=== PATIENT | female | born 1980 | race American Indian/Alaskan Native ===

== ENCOUNTER 2017-12-18 10:11 | Emergency (ER) | payer SELFPAY ==
--- NOTE | 2017-12-18 10:44 | Emergency Department Report ---
ED Abdominal Pain HPI - General Chief Complaint: Abdominal Pain Stated Complaint: ABD PAIN Time Seen by Provider: 12/18/17 10:37 Source: patient Mode of arrival: Ambulatory Limitations: No Limitations - History of Present Illness Initial Comments: 37-year-old female presents for 1 week of pelvic pain. Constant vaginal discharge. Denies fever. Denies vomiting. Denies poor appetite. Mild pain. -: Gradual, week(s) (1) Location: suprapubic Radiation: none Migration to: no migration Severity: mild Quality: cramping Consistency: intermittent Improves With: nothing Worsens With: nothing - Related Data Previous Rx's Medication Instructions Recorded Last Taken Type Acetaminophen/Codeine [Tylenol #3] 1 tab PO Q8H PRN #12 tablet 04/17/15 Unknown Rx Promethazine [Phenergan TAB] 25 mg PO Q8HR PRN #15 tab 04/17/15 Unknown Rx Ibuprofen 800 mg PO Q6H PRN #10 tablet 12/18/17 Unknown Rx Allergies Allergy/AdvReac Type Severity Reaction Status Date / Time No Known Allergies Allergy Verified 12/18/17 10:15 ED Review of Systems ROS: Stated complaint: ABD PAIN Other details as noted in HPI Comment: All other systems reviewed and negative Constitutional: denies: fever, malaise Respiratory: denies: cough Cardiovascular: denies: chest pain ED Past Medical Hx - Past Medical History Hx Hypertension: Yes Hx Headaches / Migraines: Yes Hx Asthma: Yes - Surgical History Additional Surgical History: . TUBAL LIGATION - Social History Smoking Status: Never Smoker Substance Use Type: None - Medications Home Medications: Home Medications Medication Instructions Recorded Confirmed Last Taken Type Acetaminophen/Codeine [Tylenol #3] 1 tab PO Q8H PRN #12 tablet 04/17/15 Unknown Rx Promethazine [Phenergan TAB] 25 mg PO Q8HR PRN #15 tab 04/17/15 Unknown Rx Ibuprofen 800 mg PO Q6H PRN #10 tablet 12/18/17 Unknown Rx ED Physical Exam - General Limitations: No Limitations General appearance: alert, in no apparent distress - Head Head exam: Present: atraumatic, normocephalic - Eye Eye exam: Present: normal appearance - ENT ENT exam: Present: mucous membranes moist - Neck Neck exam: Present: normal inspection - Respiratory Respiratory exam: Present: normal lung sounds bilaterally. Absent: respiratory distress, wheezes, rales, rhonchi - Cardiovascular Cardiovascular Exam: Present: regular rate, normal rhythm, normal heart sounds. Absent: systolic murmur, diastolic murmur, rubs, gallop - GI/Abdominal GI/Abdominal exam: Present: soft, normal bowel sounds. Absent: distended, tenderness, guarding, rebound - Extremities Exam Extremities exam: Present: normal inspection - Back Exam Back exam: Present: normal inspection - Neurological Exam Neurological exam: Present: alert, oriented X3 - Psychiatric Psychiatric exam: Present: normal affect, normal mood - Skin Skin exam: Present: warm, dry, intact, normal color. Absent: rash ED Course Vital Signs 12/18/17 10:15 Temperature 98.4 F Pulse Rate 89 Respiratory 18 Rate Blood Pressure 135/94 O2 Sat by Pulse 100 Oximetry ED Medical Decision Making - Medical Decision Making 1 week of pelvic pain: Differential includes PID, cystitis, ovarian cyst, endometriosis. No indication of ectopic . No indication of appendicitis. Patient was referred to the health department and outside clinic for further evaluation and treatment. Critical care attestation.: If time is entered above; I have spent that time in minutes in the direct care of this critically ill patient, excluding procedure time. ED Disposition Clinical Impression: Pelvic pain Disposition: DC-01 TO HOME OR SELFCARE Is pt being admited?: No Does the pt Need Aspirin: No Condition: Stable Instructions: Abdominal Pain (ED), Chronic Pelvic Pain in Women (ED) Prescriptions: Ibuprofen 800 mg PO Q6H PRN #10 tablet PRN Reason: Pain Referrals: PRIMARY CARE, [Primary Care Provider] - 3-5 Days Forms: Work/School Release Form(ED)
[2017-12-18 10:53] LABS: HCG Qualitative,Urine Negative (Negative)
[2017-12-18 10:54] LABS: Mucus,Urine FEW /HPF
[2017-12-18 10:56] LABS: Bilirubin,Urine NEG (Negative); Blood,Urine MOD (Negative); Color,Urine Yellow (Yellow); Protein,Urine <15 mg/dL mg/dL (Negative); Urobilinogen,Urine < 2.0 mg/dL (<2.0)
[2017-12-18 11:48] VITALS: BP 134/72
== END 2017-12-18 11:47 | disposition home or self-care (01) ==
LOC: ED 10:11
DX: R10.2 Pelvic and perineal pain (principal); N89.8 Other specified noninflammatory disorders of vagina; I10 Essential (primary) hypertension; G43.909 Migraine, unspecified, not intractable, without status migrainosus; J45.909 Unspecified asthma, uncomplicated; Z98.51 Tubal ligation status
CPT/HCPCS: 81001; 81025; 99283

== ENCOUNTER 2018-02-13 08:15 | Emergency (ER) | payer SELFPAY ==
[2018-02-13 08:35] VITALS: BP 140/89
== END 2018-02-13 09:40 | disposition left against medical advice (07) ==
LOC: ED 08:15
DX: T14.8XXA Other injury of unspecified body region, initial encounter (principal); Z53.21 Procedure and treatment not carried out due to patient leaving prior to being seen by health care provider